=== PATIENT | male | born 2000 | race Caucasian/White ===

== ENCOUNTER 2022-02-26 15:57 | Emergency (ER) | payer OTHER, SELFPAY ==
[2022-02-26 15:59] VITALS: BP 116/73; PULSE 64; RESP 16; TEMP 36.6; O2SAT 98; BMI 25.7
[2022-02-26] MEDS: Rabies Vaccine,Human Diploid 2.5 UNITS Vial IM (18:51)
[2022-02-26] MEDS: Rabies Immune Globulin/PF 300 UNIT/ML, 5 ML VIAL 1530 UNIT IM (18:55)
--- NOTE | 2022-02-26 19:03 | EX.ED.DYSGE1 ---
HPI History of Present Illness Chief Complaint: Bite Informant: patient Narrative Narrative: Patient has abrasion on anterior right thigh. He lives in a dorm that has bats. He has not seen a bat. He does not know where the abrasion came from. He has no symptoms. No medical problems No medications Allergy to shelfish. [facility] Medical History Superior labrum [id number] (SLAP) tear of right shoulder Medical History no medical history Allergy/AdvReac Type Severity Reaction Status Date / Time shellfish derived Allergy Swelling Verified 02/26/22 15:59 Social History Smoking Status: Never smoker ROS ROS ED Constitutional Constitutional ED: Denies chills or fever(s) ENT ENT ED: Denies rhinorrhea Cardiovascular Cardiovascular: Denies chest pain Respiratory/Chest Respiratory/Chest: Denies cough Gastrointestinal Gastrointestinal: Denies nausea or vomiting Musculoskeletal Musculoskeletal: Denies myalgias Integumentary Reports rash Neurologic Neurologic: Denies headache(s), paresthesias or weakness Hematologic/Lymphatic Hematologic/Lymphatic: Denies easy bleeding or easy bruising EXAM Physical Exam Const Vital Signs: 02/26/22 15:59 Temperature 97.8 F Temperature Source Temporal Pulse Rate 64 Respiratory Rate 16 Blood Pressure 116/73 Blood Pressure Mean 87 Pulse Ox 98 Oxygen Delivery Method Room Air Positive well nourished and well developed General Appearance ED: well developed and NAD HEENT Reports moist mucous membranes Eyes General Eye ED: Negative for scleral icterus Resp normal respiratory effort and clear to auscultation bilaterally Cardio regular rate GI non-tender Back/Spine Back/Spine Narrative: No pain with motor Extremity Extremity Narrative: Slight abrasion of the right anterior thigh. No pustule. No sign of infection. No swelling. Not tender. Neuro Sensorium / Orientation: alert Psych mental status grossly normal Skin Skin Narrative: See above. MDM MDM MDM Narrative Medical decision making narrative: It is unclear if this patient was actually bit by a bat. There is an abrasion. He does sleep in a dorm that has bats. He will be treated. Discharge Plan Triage Chief Complaint: Bite ED Provider: Gallo Powell Dx/Rx/DC Orders Clinical Impression: Exposure to bat without known bite, Abrasion of thigh Instructions: Understanding Rabies Primary Care Provider: Care Physician,No Primary Referrals: Care Physician,No Primary [Primary Care Provider] - Activity Restrictions/Additional Instructions: Follow-up for repeat rabies vaccine series as directed. Disposition Disposition: Home, Self Care
--- NOTE | 2022-02-26 19:04 | CM.ED ---
LUIS ALBERTO noted on tracker patient had no PCP. LUIS ALBERTO met with patient briefly. He has a PCP at home and goes to the wellness center at [facility] when medical care is needed. No issues voiced. LUIS ALBERTO remains available if needs arise. Helen ROA
== END 2022-02-26 19:15 | disposition home or self-care (01) ==
PROVIDERS: Emergency Provider Emergency Medicine; Visit Provider Emergency Medicine
DX: S70.311A Abrasion, right thigh, initial encounter (principal); Z20.3 Contact with and (suspected) exposure to rabies; X58.XXXA Exposure to other specified factors, initial encounter
CPT/HCPCS: 90375; 90675; 99282

== ENCOUNTER 2022-03-02 13:22 | Outpatient (CLI) | payer OTHER, SELFPAY ==
[2022-03-02 13:22] VITALS: BP 134/67; PULSE 69; RESP 16; TEMP 36.4; O2SAT 98; BMI 25.9
[2022-03-02] MEDS: Rabies Vaccine,Human Diploid 2.5 UNITS Vial IM (13:51)
== END 2022-03-02 14:23 | disposition home or self-care (01) ==
PROVIDERS: Visit Provider Emergency Medicine
DX: Z20.3 Contact with and (suspected) exposure to rabies (principal); Z23 Encounter for immunization
CPT/HCPCS: 96372; 90675

== ENCOUNTER 2022-03-06 18:00 | Outpatient (CLI) | payer OTHER, SELFPAY ==
[2022-03-06] MEDS: Rabies Vaccine,Human Diploid 2.5 UNITS Vial IM (19:12)
[2022-03-06 19:13] VITALS: BP 123/73; PULSE 76; RESP 16; TEMP 36.4; O2SAT 98; BMI 25.0
== END 2022-03-06 19:53 | disposition home or self-care (01) ==
LOC: ED 19:53
DX: Z23 Encounter for immunization (principal)
CPT/HCPCS: 90675; 96372